=== PATIENT | male | born 1965 | race Caucasian/White ===

== ENCOUNTER 2016-06-26 15:41 | Emergency (ER) | payer OTHER ==
[~2016-06-26] VITALS: Ht 165.1 cm; Wt 90.0 kg
[2016-06-26 15:44] VITALS: Ht 165.1 cm; Wt 90.0 kg
--- NOTE | 2016-06-26 16:20 | ERD ---
ER Documentation Chief Complaint Date/Time DATE: 06/26/16 TIME: 16:18 Chief Complaint RIGHT TESTICLE POSSIBLE ABCESS/MASS? GETTING BIGGER X 3 MOS HPI This 50-year-old male complains of a lesion on his right scrotum enlarging over the last 3 months. He believes it started with a scratch possibly irritated by iodine or peroxide. He denies any urinary complaints, blood, dysuria, fevers, there is been no discharge or bleeding. It is minimally tender. ROS All systems reviewed and are negative except as per history of present illness. Allergies Allergies: Coded Allergies: No Known Allergy (Verified Allergy, Mild, 02/26/09) PMhx/Soc History of Surgery: Yes (APPDEX. APPOX 30 YEARS AGO, TONSILLECTOMY) Hx Neurological Disorder: No Hx Respiratory Disorders: No Hx Cardiac Disorders: Yes (HTN, HYPERLIPEDEMIA) Hx Psychiatric Problems: No Hx Miscellaneous Medical Probl: No Hx Alcohol Use: No (SOCIALLY) Hx Substance Use: No Hx Tobacco Use: Yes (1 PACK A DAY) Smoking Status: Heavy tobacco smoker Physical Exam Vitals Vital Signs Date Time Temp Pulse Resp B/P Pulse Ox O2 Delivery O2 Flow Rate FiO2 06/26/16 15:44 98.1 90 18 158/97 98 Physical Exam Const: [] Alert, [id number]. Head: Atraumatic Eyes: Normal Conjunctiva ENT: Normal External Ears, Nose and Mouth. Neck: Full range of motion..~ No meningismus. Resp: Clear to auscultation bilaterally Cardio: Regular rate and rhythm, no murmurs Abd: Soft, non tender, non distended. Normal bowel sounds Skin: No petechiae or rashes. On the right hemiscrotum is approximately 2 cm pedunculated lesion which is not erythematous and without appreciated fluctuance. There is some plaque type changes to the surface. No active discharge, bleeding, warmth or erythema. Testicles are otherwise nontender descended bilaterally without appreciable intratesticular versus intrascrotal masses. Back: No midline or flank tenderness Ext: No cyanosis, or edema Neur: Awake and alert Psych: Normal Mood and Affect Procedures/MDM Patient presents with an enlarging skin lesion on his right hemiscrotum has a clinical appearance of possibly basal cell carcinoma or possibly some type of a sebaceous cyst. I am recommending special evaluation for further evaluation and complete excision. Patient has an appointment with urologist in 11 days. Advised him to keep his appointment. There is no signs or symptoms of testicular torsion, abscess, sepsis, acute abdomen. Reassured patient that 11 days is sufficient time to treat the lesion but he was encouraged to otherwise recheck for fevers, redness, new worsening symptoms. Departure Diagnosis: Primary Impression: Tumor cells, uncertain whether benign or malignant Condition: Stable Patient Instructions: Tumor, Uncertain Cause Additional Instructions: Recommend complete excision of the lesion via specialist. Appears to be possibly basal cell carcinoma or some type of cyst. Recheck for fevers, redness , new worsening symptoms. See specialists as scheduled. LISBETH ADHIKARI MD Jun 26, 2016 16:20
[2016-06-26 16:52] VITALS: BP 139/83; PULSE 88; RESP 17; TEMP 98.3
== END 2016-06-26 16:53 | disposition home or self-care (01) ==
LOC: FTE 15:41
DX: D49.59 Neoplasm of unspecified behavior of other genitourinary organ (principal); I10 Essential (primary) hypertension; F17.210 Nicotine dependence, cigarettes, uncomplicated
CPT/HCPCS: 99282